=== PATIENT | male | born 1935 | race Caucasian/White ===

== ENCOUNTER 2017-07-07 10:31 | Emergency (ER) | payer MEDICARE, BC ==
[2017-07-07 11:05] LABS: BASOPHILS 0.2 % (0-2); EOSINOPHILS 6.1 % (0-7); HEMATOCRIT 29.5 % (42.0-54.0); HEMOGLOBIN 9.9 g/dL (13.5-17.5); LYMPHOCYTES 20.6 % (15-50); MCH 33.7 pg (26.0-34.0); MCHC 33.6 g/dL (31.0-37.0); MCV 100.3 fL (80.0-100.0); MONOCYTES 8.2 % (2-11); NEUTROPHILS 64.9 % (40-80); PLATELET COUNT 223 10x3/uL (130-400); RBC 2.94 10x6/uL (4.20-6.10); RDW 13.3 % (11.5-14.5); WBC 5.4 10x3/uL (4.8-10.8)
[2017-07-07 11:20] LABS: ALBUMIN 3.5 g/dL (3.4-5.0); ANION GAP 13.7 mmol/L (8-16); BILIRUBIN - TOTAL 0.62 mg/dL (0.2-1.3); CALCIUM 8.6 mg/dL (8.5-10.1); CARBON DIOXIDE 32.2 mmol/L (21.0-32.0); CREATININE - SERUM 1.8 mg/dL (0.6-1.3); POTASSIUM - SERUM 3.9 mmol/L (3.5-5.1); PROTEIN - SERUM 6.6 g/dL (6.4-8.2)
== END 2017-07-07 14:07 | disposition home or self-care (01) ==
LOC: D.ER 10:31
PROVIDERS: Emergency Medicine
DX: R55 Syncope and collapse (principal); C85.90 Non-Hodgkin lymphoma, unspecified, unspecified site; E11.9 Type 2 diabetes mellitus without complications; Z79.4 Long term (current) use of insulin; R01.1 Cardiac murmur, unspecified; Z86.79 Personal history of other diseases of the circulatory system; N28.9 Disorder of kidney and ureter, unspecified; D64.9 Anemia, unspecified